=== PATIENT | female | born 1985 | race African-American/Black ===

== ENCOUNTER 2021-03-21 02:12 | Day surgery (SDC) | payer BC, SELFPAY ==
[2021-03-21] VITALS (8 sets, daily range): BP systolic 104–108; BP diastolic 52–70; PULSE 62–72; RESP 16–20; TEMP 36.3–36.9; O2SAT 98–100; BMI 25.6
--- NOTE | 2021-03-21 14:34 | WPDANESEPPF ---
Anes - Initial Pre Proc Eval Procedure: Operation Date: 03/21/21 15:45 Proposed Procedures p Laparoscopic Left Salpingostomy - Jordan Thompson MD Date/Time: 03/21/21 14:34 Surgeon: Jordan Thompson MD Pre Op Diagnosis: ectopic Patient Data Age: 35 Gender: F Height: 1.57 m Weight: 63.5 kg Allergies Allergy/AdvReac Type Severity Reaction Status Date / Time No Known Allergies Allergy Unknown Unverified 03/21/21 14:17 Home Medications Medication Instructions Recorded Confirmed Type hydrocodone-acetaminophen 1 tablet PO Q4H PRN #14 tablet 03/21/21 Rx [id number]-[id number]-[id number]-[id number] 1 tablet PO DAILY 03/21/21 03/21/21 History [] Patient hx anesthesia problems: none Family hx anesthesia problems: none Results Review: All pre-operative results and documents have been reviewed as part of the pre-operative evaluation. [facility] Past Medical History Medical History (Updated 03/21/21 @ 14:59 by Jordan Thompson MD) Ectopic , tubal Surgical History Surgical History (Updated 03/21/21 @ 14:56 by Jordan Thompson MD) H/O unilateral salpingectomy Social History Social History Smoking status: Never smoker Alcohol intake: never Substance use: never Substance use type: does not use Living arrangements: with family Spiritual care concerns: No Anes - Eval Final PreProcedure Day of Procedure 03/21/21 14:34 Patient weight: normal Heart: regular rate and rhythm Lungs: clear to auscultation and normal air movement Airway: Mallampati scale class II Neurological: alert and oriented Last oral intake: >/= 8 hours ASA classification: I Emergent: no Anesthetic plan: proceed Anesthesia type and monitoring: general ETT Results Review: All pre-operative results and documents have been reviewed as part of the pre-operative evaluation. Informed Consent: The patient's anesthetic plan and its attendant risks and benefits were discussed with the patient/family/POA. Questions were solicited and answers provided to the satisfaction of the patient/family/POA.
[2021-03-21] MEDS: LACTATED RINGERS 1,000 ML 30 ML IV CONT ×2 (14:50→18:09)
--- NOTE | 2021-03-21 14:52 | PM.HPGS ---
History of Present Illness History of Present Illness Consent: Risks, benefits, and alternatives have been discussed and questions answered. Patient agrees to proceed with procedure. Chief complaint: ectopic Narrative: Carito Brown is a 35 year old female A2 presented to the office as a new obstetric patient. Patient has a history of prior ectopic in right tube approximately a year ago with removal of tube. Patient was seen early and beta followed showing abnormal levels patient sent for a obstetric scan and showed a 7mm ectopic with pole, yolk sac and heart rate 92 bpm corresponding to 5 week 3 day gestation. Review of Systems Review of Systems: mild lleft lower quadrant fullness PMFSH Past Medical History Medical History (Updated 03/21/21 @ 14:59 by Jordan Thompson MD) Ectopic , tubal Surgical History Surgical History (Updated 03/21/21 @ 14:56 by Jordan Thompson MD) H/O unilateral salpingectomy Social History Social History Smoking status: Never smoker Alcohol intake: never Substance use: never Substance use type: does not use Living arrangements: with family Spiritual care concerns: No Meds Home Medications and Allergies Home Medications Medication Instructions Recorded Confirmed Type aegwaaev-[id number]-Iv-FA 1 tablet PO DAILY 03/21/21 03/21/21 History [] Allergies Allergy/AdvReac Type Severity Reaction Status Date / Time No Known Allergies Allergy Unknown Unverified 03/21/21 14:17 Exam Const: General: cooperative Orientation/consciousness: oriented to person, oriented to place and oriented to time Resp: Auscultation: clear to auscultation bilaterally Cardio: Heart sounds: S1 normal heart sound present and S2 normal heart sound present GI: GI Palp: Yes Soft to palpation : External Female Exam: other (deferred to OR) Assessment and Plan Assessment and plan (1) H/O unilateral salpingectomy: Code(s): Z90.79 - Acquired absence of other genital organ(s) Status: Acute (2) Ectopic , tubal: Code(s): O00.109 - Unspecified tubal without intrauterine Status: Acute Assessment and Plan: Scheduled for a laparoscopic salpingostomy. risk and benefits reviewed including possible salpingectomy, bleeding, infection, trauma, and damage to any surrounding organ.
[2021-03-21] MEDS: KETOROLAC 15 MG/ML VIAL (*BKC) IV PUSH (15:16)
[2021-03-21] MEDS: ACETAMINOPHEN 500 MG TABLET 1000 MG PO (15:16)
--- NOTE | 2021-03-21 15:25 | WPDHPUPDATE1 ---
History and Physical Update Update Date/Time: 03/21/21 15:25 History and Physical has been reviewed, including an updated exam of the patient. There are NO changes in the patient's condition. Risks, benefits, and alternatives have been discussed and questions answered. Patient agrees to proceed with procedure.
--- NOTE | 2021-03-21 16:09 | SUR.PREOP ---
1600-PT AND INFORMED SURGEON IS DELAYED BY OTHER SURGEON AND SURGERY WILL NOT BE UNTIL 1700 OR SO. CARE OF PT TRANSFERRED TO Vinod MESA RN. PT WILL REMAIN IN PREOP ROOM 11 WITH SPOUSE-REINSTRUCTED WITH CALL SYSTEM AND AWARE OF OP STAFF AREA.
--- NOTE | 2021-03-22 11:58 | W.PM.PROC2 ---
Procedure Note - Detailed Date of Procedure 03/21/21 Pre-op Diagnosis ectopic Post-op Diagnosis same (lysis of adhesions) Procedure Performed left Salpingectomy Surgeon Jordan Thompson MD Anesthesia general Findings dense and filmy adhesions on right lower quadrant, left enlarge fallopian tube with normal ovaries Description of Procedure Patient was taken to the operating room with IV running. She was prepped draped in normal sterile fashion and placed in a dorsal lithotomy position. The bladder was drained with a catheter and 180cc of clear urine noted a bivalve speculum was then placed in the vagina anterior lip of the cervix was grasped with a single-tooth tenaculum uterus was sounded to 7cm. An acorn manipulator was then placed into the uterine cervix for uterine manipulation. Attention was then turned to the abdomen and a 1cm incision was made in the umbilical fold after 3cc of lidocaine was injected. The Veress needle was used to insufflate the abdomen after passing the drop test. The abdomen was filled with CO2 gas to a maximum pressure of 15mmHg. The trocar was then advanced under dialect presumed direct visualization with scope. a 5mm port was placed under direct visualization on the left lower you had lower abdomen.Upon placement of right trocar adhesions noted. the adhesion were carefully dissected with sharp scissor and cautery for hemostasis. At his time the right trocar was then placed under direct visualization. The uterus was noted to be normal and the right tube was absent. The left tube was noted to be enlarged in the pelvis. The uterine manipulator and graspers were used to elevate the uterus to visualize the ovaries. The left tube was incised with need point cautery and the mass was shelled out and removed throught the ports. the abdomen was irrigated and bleeding noted at the left tube site. Cautery was applied and hemoderm was used with no success in hemostasis. Decision made to remove the left tube. The tube was grasped and a harmonic scalpel was used to transect and ligated the left tube to the uterine cornua. The tube was removed through the port. Hemostasis was assured and the ports were removed. The skin incisions were closed with 4-0 Vicryl suture and closed with Dermabond. The incisions were injected with 1% lidocaine with epinephrine. The vaginal instruments were removed from the vagina and patient was taken to recovery room in stable condition Estimated Blood Loss -25.0 Urine Output -175.0 Drains No Packing No Pathology yes Complications None Condition stable Disposition PACU
== END 2021-03-21 19:45 | disposition home or self-care (01) ==
PROVIDERS: PCP Family Medicine; Visit Provider Obstetrics & Gynecology
PROC: (CPT 49320; principal; 2021-03-21 15:45)
DX: O00.102 Left tubal pregnancy without intrauterine pregnancy (principal); Z90.79 Acquired absence of other genital organ(s)
CPT/HCPCS: 59151; 36415; 86850; 86900; 86901; 88302; 88305; A9270; J1100; J1170; J1885; J2250; J2405; J2704; J3010; J7120